=== PATIENT | male | born 1935 | race Caucasian/White ===

== ENCOUNTER 2018-03-04 09:02 | Emergency (ER) | payer MEDICARE, OTHER ==
[~2018-03-04] VITALS: Ht 182.9 cm; Wt 88.0 kg
[2018-03-04] MEDS ORDERED: ASPIR 8181 MG PO (09:51)
[2018-03-04] MEDS ORDERED: NORVASC10 MG PO (11:32)
[2018-03-04] MEDS ORDERED: LUMIGAN2.5 M1 OPTH (11:33)
[2018-03-04] MEDS ORDERED: DORZOLAMIDE-TIM10 ML OPTH (11:34)
[2018-03-04] MEDS ORDERED: LIPITOR20 MG PO (11:34)
--- NOTE | 2018-03-05 16:56 | EKG ---
[facility] [address] [facility] [place] [address] Signed Wide QRS tachycardia Left axis deviation Left bundle branch block Abnormal ECG No previous ECGs available Confirmed by LYLE MASTERSON MD ([id number]) on 03/05/2018 4:56:33 PM Electronically Signed By: LYLE MASTERSON MD 03/05/18 1656 PATIENT NAME: CARL REYES JUANIS Electrocardiogram DATE OF : 31 PHYSICIAN: LYLE MASTERSON MD REPORT #: [id number] REPORT IS CONFIDENTIAL AND NOT TO BE RELEASED WITHOUT AUTHORIZATION
--- NOTE | 2018-03-05 16:57 | EKG ---
[facility] [address] [place] [address] Signed Sinus bradycardia Left axis deviation Left bundle branch block Abnormal ECG When compared with ECG of 04-MAR-2018 09:07, (Unconfirmed) Sinus rhythm has replaced Wide QRS tachycardia Vent. rate has decreased BY 82 BPM Confirmed by LYLE MASTERSON MD ([id number]) on 03/05/2018 4:56:46 PM Electronically Signed By: LYLE MASTERSON MD 03/05/18 1657 PATIENT NAME: CARL REYES JUANIS Electrocardiogram DATE OF : 31 PHYSICIAN: LYLE MASTERSON MD REPORT #: [id number] REPORT IS CONFIDENTIAL AND NOT TO BE RELEASED WITHOUT AUTHORIZATION
== END 2018-03-04 12:08 | disposition home or self-care (01) ==
LOC: ED 09:02
DX: I48.0 Paroxysmal atrial fibrillation (principal); I44.7 Left bundle-branch block, unspecified; Z79.82 Long term (current) use of aspirin; Z79.899 Other long term (current) drug therapy
CPT/HCPCS: 71045; 80053; 81001; 84484; 85025; 93005; 93010; 96361; 96365; 96375; 99285; J0282; J7040

== ENCOUNTER 2019-08-22 07:27 | Day surgery (SDC) | payer MEDICARE, OTHER ==
[~2019-08-22] VITALS: Ht 182.9 cm; Wt 97.1 kg
[~2019-08-22 07:27] MED LIST: ASPIR 8181 MG PO; DORZOLAMIDE-TIM10 ML OPTH; LIPITOR20 MG PO; LUMIGAN2.5 M1 OPTH; NORVASC10 MG PO; TOPROL XL25 MG PO
[2019-08-22] MEDS ORDERED: ELIQUIS2.5 MG (07:51)
--- NOTE | 2019-08-22 10:19 | NUR ---
08/22/19 Allison Salinas-PT ARRIVES TO PACU ON 2 L VIA NC. VSS. PT REACTIVE TO VERBAL STIMULUS. SATS >90%
--- NOTE | 2019-08-23 07:15 | OR ---
[facility] [address] [place], [place] [address] Signed DATE OF OPERATION: 08/22/2019 SURGEON: Shola Coley MD PREOPERATIVE DIAGNOSES: 1. Personal history of hyperplastic colorectal polyps in 2008. 2. Diverticulosis. 3. Mother with a history of colonic polyps. POSTOPERATIVE DIAGNOSES: 1. A 3 to 4 mm polyps at hepatic flexure and 65 cm. 2. Minimal to moderate sigmoid diverticulosis. 3. Moderate internal hemorrhoids. 4. Perianal comedones x4. PROCEDURE: Colonoscopy with cold biopsy. ESTIMATED BLOOD LOSS: None. INDICATIONS: Carl is an 84-year-old gentleman who came to us in 2008 for a colonoscopy. It is one and only colonoscopy. He had multiple small hyperplastic polyps throughout his colon and his rectum. He also had diverticulosis on the left side. He actually did well with Versed and fentanyl. He told me his mother lived to be age 90. She had a history of colonic polyps. 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 He said he did very well with that. He has also had the left knee replaced prior to that. He has been to the left knee surgery at least 4 times, he said. He said he gave up the golfing, but he still goes to [employer] 3 days a week to stay in shape. In fact, he maintains excellent muscle mass. He has excellent functional status for his age. He still lives alone and drives himself around town. He came and inquired about followup endoscopy. We had a long discussion in that regard. In the end, I explained to Carl I am more than happy to help in that regard. However, he did want to talk to his daughter. He had given us a call subsequently and asked for followup colonoscopy. We did take him off Eliquis for 5 days because of the paroxysmal atrial fibrillation. He also received preoperative antibiotics because of his knee replacements. He understands colonoscopy quite well. I had given him a pamphlet in the office. He understands there is risk including, but not limited to gas bloating, crampy abdominal pain, bleeding, perforation requiring surgery, and missed diagnosis. He also understands the need for Electronically Signed By: SHOLA COLEY MD 08/23/19 0715 PATIENT NAME: CARL REYES OPERATIVE REPORT DATE OF : 31 REPORT #: [id number] PHYSICIAN: SHOLA COLEY MD PCP: VÍCTOR BERRY PA-C REPORT IS CONFIDENTIAL AND NOT TO BE RELEASED WITHOUT AUTHORIZATION [facility] [address] [place], [place] [address] Signed IV conscious sedation. He expressed understanding and wished to proceed. PROCEDURE NOTE: Carl was taken into our endoscopy suite and placed in the left lateral decubitus position. He was given a total of 7 mg of Versed and 100 mcg of fentanyl to cover the case. A digital rectal exam was performed. He does have 4 small perianal comedones. Sphincter tone was unremarkable. Prostate [id number] indurated without nodules. The adult colonoscope was then introduced and advanced all around into the cecum under direct visualization of camera. It took a few minutes with some extra sedation, abdominal compression, and suctioning out some of the liquid stool. Nevertheless, he is overall not difficult to pass the scope. We could easily see the appendiceal orifice and the ileocecal valve. We taken several pictures throughout for photodocumentation. The scope had been slowly withdrawn. The above-mentioned polyps were easily removed with the help of cold biopsy forceps. He does have diverticula in the left and sigmoid colon. They were minimal to moderate in size, minimal to moderate in number, and scattered about. The rectum was unremarkable. Upon retroflexion of scope, he does have moderate internal hemorrhoids. One is a little bit larger. It is little irritated and red. I would not doubt that it bleeds from time to time. If he gets in too much trouble, he could consider having it banded in the office. After this, the gas was suctioned out and the colonoscope removed. Carl tolerated the procedure quite well. RECOMMENDATIONS: I will see Carl back in my office in 7 to 14 days to review his results. We will hold aspirin, NSAIDs, and Eliquis for 7 days. Shola Coley MD ALB/MODL /[id number] cc: MD Víctor Daugherty, Dr. Stephenie Esquivel, Electronically Signed By: SHOLA COLEY MD 08/23/19 0715 PATIENT NAME: CARL REYES OPERATIVE REPORT DATE OF : 31 REPORT #: [id number] PHYSICIAN: SHOLA COLEY MD PCP: VÍCTOR BERRY PA-C REPORT IS CONFIDENTIAL AND NOT TO BE RELEASED WITHOUT AUTHORIZATION [facility] [address] [place], [place] [address] Signed Copies: SHOLA COLEY MD ~ Electronically Signed By: SHOLA COLEY MD 08/23/19 0715 PATIENT NAME: AVIS REYESBLANQUITA OLIVAREZ OPERATIVE REPORT DATE OF : 31 REPORT #: [id number] PHYSICIAN: SHOLA COLEY MD PCP: VÍCTOR BERRY PA-C REPORT IS CONFIDENTIAL AND NOT TO BE RELEASED WITHOUT AUTHORIZATION
--- NOTE | 2019-08-23 15:05 | PATH ---
[facility] [address] [place], [place] [address] Signed SPECIMEN(S): A HEPATIC FLEXURE POLYP SPECIMEN(S): B COLON POLYP AT 65 CM SPECIMEN SOURCE: A. HEPATIC FLEXURE POLYP B. COLON POLYP AT 65 CM CLINICAL HISTORY: Pre-op: Diverticulosis, polyps. Post-op: Anal skin tags, anal comedomes, polyp x 2, diverticulosis, hemorrhoids. MICROSCOPIC DESCRIPTION: Histologic sections of all submitted blocks are examined by light microscopy. These findings, together with the gross examination, support the pathologic diagnosis. FINAL PATHOLOGIC DIAGNOSIS: A. Mucosa, hepatic flexure of colon, biopsy: - Tubular adenoma. B. Mucosa, colon at 65 cm, biopsy: - Focal features suggestive but not entirely diagnostic for hyperplastic polyp (See comment). COMMENT: B -- Multiple levels over three slides are examined. No adenomatous change or full thickness hyperplastic change is seen. LJA:cml:C2NR GROSS DESCRIPTION: Two specimens are received in two containers, labeled "OC." A. The specimen, labeled "OC, #1" and "hepatic flexure polyp" on the requisition, is received in formalin and consists of two soft zuleta tissue fragments that measure 0.3 cm each and are submitted in toto in cassette (A1). B. The specimen, labeled "OC, #2" and "colon polyp at 65 cm" on the requisition, is received in formalin and consists of a 0.3 cm soft zuleta tissue fragment that is submitted in toto in cassette (B1). SS (under the direct supervision of a pathologist) The Gross Description was prepared using a voice recognition system. The report was reviewed for accuracy; however, sound-alike word errors, addition and/or deletions may occur. If there is any question about this report, please contact Client Services. PATIENT NAME: CARL REYES PATHOLOGY DATE OF : 31 REPORT #: [id number] PHYSICIAN: TAYLOR WAITE PCP: VÍCTOR BERRY PA-C REPORT IS CONFIDENTIAL AND NOT TO BE RELEASED WITHOUT AUTHORIZATION [facility] [address] [place] [address] Signed PERFORMING LABORATORY: The technical component was performed by [address] [address] (Detective Investigator: Shazia Mendenhall MD; CLIA# [id number]). Professional interpretation was performed [place] [facility], [address] [address] (CLIA# [id number]). Diagnostician: Tera Robles MD Pathologist Electronically Signed 08/23/2019 Copies: ~ PATIENT NAME: CARL REYES PATHOLOGY DATE OF : 31 REPORT #: [id number] PHYSICIAN: TAYLOR WAITE PCP: VÍCTOR BERRY PA-C REPORT IS CONFIDENTIAL AND NOT TO BE RELEASED WITHOUT AUTHORIZATION
== END 2019-08-22 11:05 | disposition home or self-care (01) ==
LOC: DS 07:27 → OPS 07:27 → DS 09:00 → OPS 09:30 → DS 09:30 → OPS 11:05
PROVIDERS: Colon & Rectal Surgery
PROC: 0DBL8ZZ Excision of Transverse Colon, Via Natural or Artificial Opening Endoscopic (ICD-10-PCS; 2019-08-22)
PROC: 0DBE8ZZ Excision of Large Intestine, Via Natural or Artificial Opening Endoscopic (ICD-10-PCS; principal; 2019-08-22 09:30)
DX: Z12.11 Encounter for screening for malignant neoplasm of colon (principal); D12.3 Benign neoplasm of transverse colon; K63.5 Polyp of colon; K57.30 Diverticulosis of large intestine without perforation or abscess without bleeding; K64.8 Other hemorrhoids; I25.10 Atherosclerotic heart disease of native coronary artery without angina pectoris; I10 Essential (primary) hypertension; E78.5 Hyperlipidemia, unspecified; E03.9 Hypothyroidism, unspecified; N40.0 Benign prostatic hyperplasia without lower urinary tract symptoms; E11.9 Type 2 diabetes mellitus without complications; Z86.010 Personal history of colon polyps; Z83.71 Family history of colonic polyps; Z79.01 Long term (current) use of anticoagulants; Z79.899 Other long term (current) drug therapy; Z87.891 Personal history of nicotine dependence
CPT/HCPCS: 99153; G0500; J0690; J2250; J3010; J7121

== ENCOUNTER 2021-01-02 12:23 | Emergency (ER) | payer MEDICARE, OTHER ==
[~2021-01-02] VITALS: Ht 182.9 cm; Wt 97.1 kg
[~2021-01-02 12:23] MED LIST changes: +ELIQUIS2.5 MG
--- NOTE | 2021-01-02 18:33 | EKG ---
[facility] [address] [facility] [place] [address] Signed Wide QRS tachycardia Left axis deviation Left bundle branch block Abnormal ECG When compared with ECG of 20-APR-2018 10:04, Wide QRS tachycardia has replaced Sinus rhythm Confirmed by LYLE MASTERSON MD ([id number]) on 01/02/2021 6:33:38 PM Electronically Signed By: LYLE MASTERSON MD 01/02/211832 PATIENT NAME: AVIS REYESBLANQUITA OLIVAREZ Electrocardiogram DATE OF : 31 PHYSICIAN: LYLE MASTERSON MD REPORT #: [id number] REPORT IS CONFIDENTIAL AND NOT TO BE RELEASED WITHOUT AUTHORIZATION
== END 2021-01-03 00:49 | disposition home or self-care (01) ==
LOC: ED 12:23
DX: I48.91 Unspecified atrial fibrillation (principal); I10 Essential (primary) hypertension; E78.5 Hyperlipidemia, unspecified; Z87.891 Personal history of nicotine dependence; Z79.899 Other long term (current) drug therapy
CPT/HCPCS: 71045; 80053; 84484; 85025; 93005; 93010; 96374; 99285-25

== ENCOUNTER 2021-01-16 14:01 | Emergency (ER) | payer MEDICARE, OTHER ==
[~2021-01-16] VITALS: Ht 182.9 cm; Wt 97.1 kg
--- OUTSIDE RECORDS SUMMARY | 2021-01-16 15:20 | XMS ---
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 Care History Medical/Surgical 2018 [facility] - [facility] RECEIVED ED PHYSICIAN REFERRAL- FOLLOW UP TO PATIENT BEING SEEN IN THE ED. - PATIENT HAS A FOLLOW UP APT WITH [facility] ON 05/12/18. - PATIENT HAS HIS ECHO SCHEDULED FOR 05/04/18. - PATIENT HAD HIS PCP APT ON 04/25/18. E.D. VISIT COUNT (12 MO.) 2 [facility] TOTAL 2 NOTE: Visits indicate total known visits. ED/UCC VISIT TRACKING (12 MO.) 01/16/2021 14:02 [facility] TYPE: Emergency COMPLAINT: - HIGH HEART RATE 01/02/2021 12:24 [facility] TYPE: Emergency COMPLAINT: - LOW HEART RATE DIAGNOSES: - Unspecified atrial fibrillation - Other emt intermediate (current) drug therapy - Personal history of nicotine dependence - Hyperlipidemia, unspecified - Essential (primary) hypertension INPATIENT VISIT TRACKING (12 MO.) No inpatient visits to display in this time frame [email or web address]
--- NOTE | 2021-01-17 09:09 | EKG ---
[facility] [address] [place] [address] Signed Wide QRS tachycardia Left axis deviation Left bundle branch block Abnormal ECG When compared with ECG of 02-JAN-2021 12:36, No significant change was found Confirmed by LYLE MASTERSON MD ([id number]) on 01/17/2021 9:08:57 AM Electronically Signed By: LYLE MASTERSON MD 01/17/21 0909 PATIENT NAME: ERICCARL Electrocardiogram DATE OF : 31 PHYSICIAN: LYLE MASTERSON MD REPORT #: [id number] REPORT IS CONFIDENTIAL AND NOT TO BE RELEASED WITHOUT AUTHORIZATION
--- NOTE | 2021-01-17 09:09 | EKG ---
[facility] [address] [place] [address] Signed Sinus rhythm with 1st degree AV block Left axis deviation Left bundle branch block Abnormal ECG When compared with ECG of 16-JAN-2021 14:10, (Unconfirmed) Sinus rhythm has replaced Wide QRS tachycardia Vent. rate has decreased BY 48 BPM Confirmed by LYLE MASTERSON MD ([id number]) on 01/17/2021 9:09:19 AM Electronically Signed By: LYLE MASTERSON MD 01/17/21908 PATIENT NAME: CARL REYES Electrocardiogram DATE OF : 31 PHYSICIAN: LYLE MASTERSON MD REPORT #: [id number] REPORT IS CONFIDENTIAL AND NOT TO BE RELEASED WITHOUT AUTHORIZATION
--- NOTE | 2021-01-17 09:09 | EKG ---
[facility] [address] [facility] [place] [address] Signed Sinus rhythm with 1st degree AV block Anterior infarct , age undetermined Abnormal ECG When compared with ECG of 16-JAN-2021 14:53, (Unconfirmed) Left bundle branch block is no longer present Anterior infarct is now present Confirmed by LYLE MASTERSON MD ([id number]) on 01/17/2021 9:09:46 AM Electronically Signed By: LYLE MASTERSON MD 01/17/21908 PATIENT NAME: CARL REYES JUANIS Electrocardiogram DATE OF : 31 PHYSICIAN: LYLE MASTERSON MD REPORT #: [id number] REPORT IS CONFIDENTIAL AND NOT TO BE RELEASED WITHOUT AUTHORIZATION
== END 2021-01-16 17:11 | disposition home or self-care (01) ==
LOC: ED 14:01
DX: I48.91 Unspecified atrial fibrillation (principal); I10 Essential (primary) hypertension; E78.5 Hyperlipidemia, unspecified; Z87.891 Personal history of nicotine dependence; Z79.899 Other long term (current) drug therapy
CPT/HCPCS: 80048; 84484; 93005; 93010; 96374; 99285-25; J7040

== ENCOUNTER 2021-02-23 16:46 | Emergency (ER) | payer MEDICARE, OTHER ==
[~2021-02-23] VITALS: Ht 182.9 cm; Wt 88.5 kg
[2021-02-23] MEDS ORDERED: BETAPACE80 MG PO (17:03)
[2021-02-23] MEDS ORDERED: INDAPAMIDE1.25 MG PO (17:05)
--- NOTE | 2021-02-23 23:06 | EKG ---
[facility] [address] [place] [address] Signed AV dual-paced rhythm Abnormal ECG When compared with ECG of 16-JAN-2021 15:37, Electronic ventricular pacemaker has replaced Sinus rhythm Confirmed by SYLVIE LINDQUSIT MD ([id number]) on 02/23/2021 11:06:01 PM Electronically Signed By: SYLVIE LINDQUIST MD 02/23/21 2306 PATIENT NAME: ERICCARL Electrocardiogram DATE OF : 31 PHYSICIAN: SYLVIE LINDQUIST MD REPORT #: [id number] REPORT IS CONFIDENTIAL AND NOT TO BE RELEASED WITHOUT AUTHORIZATION
== END 2021-02-23 18:44 | disposition home or self-care (01) ==
LOC: ED 16:46
DX: M54.6 Pain in thoracic spine (principal); I10 Essential (primary) hypertension; E78.5 Hyperlipidemia, unspecified; I48.91 Unspecified atrial fibrillation; Z87.891 Personal history of nicotine dependence; Z88.8 Allergy status to other drugs, medicaments and biological substances; Z79.899 Other long term (current) drug therapy
CPT/HCPCS: 71045; 93005; 93010; 99283-25

== ENCOUNTER 2022-04-14 07:51 | Emergency (ER) | payer MEDICARE, OTHER ==
[~2022-04-14] VITALS: Ht 182.9 cm; Wt 88.5 kg
[~2022-04-14 07:51] MED LIST changes: +BETAPACE80 MG PO; +INDAPAMIDE1.25 MG PO
[2022-04-14] MEDS ORDERED: RAMIPRIL10 MG PO (08:08)
[2022-04-14] MEDS ORDERED: HYDROCODON-ACE1 EA10 PO (12:55)
--- NOTE | 2022-04-17 20:53 | EKG ---
[facility] [address] [place] [address] Signed AV dual-paced rhythm with prolonged AV conduction Abnormal ECG When compared with ECG of 23-FEB-2021 17:17, No significant change was found Confirmed by Brooklyn Mitchell MD () on 04/17/2022 8:52:52 PM Electronically Signed By: BROOKLYN MITCHELL MD 04/17/222052 PATIENT NAME: ERICCARLBLANQUITA OLIVAREZ Electrocardiogram DATE OF : 31 PHYSICIAN: BROOKLYN MITCHELL MD REPORT #: [id number] REPORT IS CONFIDENTIAL AND NOT TO BE RELEASED WITHOUT AUTHORIZATION
== END 2022-04-14 13:14 | disposition home or self-care (01) ==
LOC: ED 07:51
DX: S39.012A Strain of muscle, fascia and tendon of lower back, initial encounter (principal); K59.00 Constipation, unspecified; X58.XXXA Exposure to other specified factors, initial encounter; I10 Essential (primary) hypertension; E78.5 Hyperlipidemia, unspecified; I48.91 Unspecified atrial fibrillation; Z87.891 Personal history of nicotine dependence; Z88.8 Allergy status to other drugs, medicaments and biological substances; Z79.899 Other long term (current) drug therapy
CPT/HCPCS: 36415; 71045; 74018; 80053; 81001; 83690; 83735; 84484; 85025; 93005; 93010; 99284-25